=== PATIENT | male | born 1980 ===

== ENCOUNTER → 2025-05-28 | Outpatient (CLI) | payer OTHER ==
--- NOTE | 2025-05-28 20:09 | DVH ---
XY CHEST TWO VIEWS ROUTINE INDICATION: SOB TECHNIQUE: Two views of the chest COMPARISON: None FINDINGS/IMPRESSION: LUNGS: No pleural effusion, consolidation, or pneumothorax MEDIASTINUM: Unremarkable BONES: No acute osseous abnormality OTHER: None
== END | disposition home or self-care (01) ==
LOC: Rad HDHVI 15:13
PROVIDERS: ATTEND Internal Medicine Cardiovascular Disease
DX: R06.02 Shortness of breath (principal); R07.89 Other chest pain
CPT/HCPCS: 71046; 93306

== ENCOUNTER 2025-06-11 13:10 | Outpatient (CLI) | payer OTHER ==
[~2025-06-11] VITALS: Ht 167.6 cm; Wt 88.5 kg
== END 2025-06-11 17:00 | disposition home or self-care (01) ==
LOC: Rad HDHVI 13:10
PROVIDERS: ATTEND Internal Medicine Cardiovascular Disease
DX: R00.0 Tachycardia, unspecified (principal); R00.1 Bradycardia, unspecified; R07.89 Other chest pain; E78.00 Pure hypercholesterolemia, unspecified; F17.210 Nicotine dependence, cigarettes, uncomplicated; Z13.6 Encounter for screening for cardiovascular disorders
CPT/HCPCS: 78452; 93017; A9500; 96374

== ENCOUNTER 2025-07-09 15:06 | Outpatient (CLI) | payer OTHER | END 2025-07-09 17:00 | disposition home or self-care (01) | LOC: Rad HDHVI 15:06 | PROVIDERS: ATTEND Internal Medicine Cardiovascular Disease | DX: R07.89 Other chest pain (principal) | CPT/HCPCS: 93880 ==